=== PATIENT | male | born 1975 | race Caucasian/White ===

== ENCOUNTER → 2017-09-03 | Outpatient (CLI) | payer OTHER ==
[~2017-09-03] MED LIST: CYCL10; CYCL10 PO; ESCI20; ESCI20 PO; OXYACE10; OXYACE10 PO; OXYC5 PO; PRED20 PO; PRED5
[2017-09-03 15:07] LABS: U Amphetamine Screen DETECTED; U Barbituate Screen Not Detected; U Benzodiazapine Screen Not Detected; U Buprenorphine Screen DETECTED; U Cannabinoids Screen Not Detected; U Cocaine Screen Not Detected; U Methadone Screen Not Detected; U Methamphetamine Screen Not Detected; U Opiates Screen Not Detected; U Oxycodone Screen Not Detected; U Phencyclidine Screen Not Detected; U Propoxyphene Screen Not Detected
== END ==
LOC: LAB 14:43 → LAB SHORT 14:43
PROVIDERS: Nurse Practitioner Family
DX: Z51.81 Encounter for therapeutic drug level monitoring (principal); Z79.899 Other long term (current) drug therapy

== ENCOUNTER 2018-01-21 13:41 | Day surgery (SDC) | payer OTHER ==
[~2018-01-21] VITALS: Ht 177.8 cm; Wt 86.4 kg
[2018-01-21] MEDS ORDERED: OLANZAPINE ODT10 MG (14:06)
[2018-01-21] MEDS ORDERED: Lamictal200 MG (14:06)
[2018-01-21] MEDS ORDERED: SUBOXONE 8 MG-1 EACH (14:07)
[2018-01-21] MEDS ORDERED: AMPDEX10CR (14:08)
== END 2018-01-21 15:19 | disposition home or self-care (01) ==
LOC: ORSCSDS 13:41
PROVIDERS: Internal Medicine Gastroenterology
PROC: 0DBP8ZX Excision of Rectum, Via Natural or Artificial Opening Endoscopic, Diagnostic (ICD-10-PCS; principal; 2018-01-21 15:00)
PROC: 0DBE8ZX Excision of Large Intestine, Via Natural or Artificial Opening Endoscopic, Diagnostic (ICD-10-PCS; principal; 2018-01-21 15:00)
DX: R19.7 Diarrhea, unspecified (principal); K64.8 Other hemorrhoids; J44.9 Chronic obstructive pulmonary disease, unspecified; F31.9 Bipolar disorder, unspecified; F41.8 Other specified anxiety disorders; F17.210 Nicotine dependence, cigarettes, uncomplicated; Z79.899 Other long term (current) drug therapy
CPT/HCPCS: 88305; J2250; J7120

== ENCOUNTER → 2018-06-05 | Outpatient (CLI) | payer OTHER ==
[~2018-06-05] MED LIST changes: +AMPDEX10CR; +Lamictal200 MG; +OLANZAPINE ODT10 MG; +SUBOXONE 8 MG-1 EACH
[2018-06-05 09:15] LABS: BASOPHILS ABSOLUTE AUTO 0.09 K/mm3 (0.00-0.23); BASOPHILS PERCENT AUTO 1 % (0-2); EOSINOPHILS ABSOLUTE AUTO 0.55 K/mm3 (0.00-0.68); EOSINOPHILS PERCENT AUTO 5 % (0-6); Hematocrit 50.6 % (37.0-53.0); Hemoglobin 17.5 g/dL (13.5-17.5); IMMATURE GRAN ABSOLUTE AUTO 0.03 K/mm3 (0.00-0.10); IMMATURE GRAN PERCENT AUTO 0 % (0-1); LYMPHOCYTES ABSOLUTE AUTO 2.87 K/mm3 (0.84-5.20); LYMPHOCYTES PERCENT AUTO 28 % (21-46); MONOCYTES ABSOLUTE AUTO 0.78 K/mm3 (0.16-1.47); MONOCYTES PERCENT AUTO 8 % (4-13); Mean Corpuscular HGB 29.9 pg (26.0-34.0); Mean Corpuscular HGB Conc 34.6 g/dL (31.5-36.5); Mean Corpuscular Volume 87 fL (80-100); Mean Platelet Volume 8.5 fL (9.1-12.4); NEUTROPHILS ABSOLUTE AUTO 6.06 K/mm3 (1.96-9.15); NEUTROPHILS PERCENT AUTO 58 % (41-73); Platelet Count 288 K/mm3 (150-400); RDW Coefficient Variation 14.1 % (11.7-14.2); RDW Standard Deviation 44.3 fL (35.1-46.3); Red Blood Cell Count 5.85 M/mm3 (4.30-5.90); White Blood Cell Count 10.38 K/mm3 (4.00-11.30)
[2018-06-05 09:32] LABS: Alanine Aminotransfer (ALT/SGP 36 U/L (12-78); Albumin, Blood 3.9 g/dL (3.4-5.0); Alk Phos 111 U/L (40-126); Anion Gap 9 mmol/L (6-16); Aspartate Aminotrans (AST/SGOT 31 U/L (12-37); Bilirubin, Total 0.4 mg/dL (0.1-1.0); Blood Urea Nitrogen 15 mg/dL (8-24); Bun/Creatinine Ratio 14.4 (12.0-20.0); CO2, Blood 27 mmol/L (21-32); CPK Creatine Kinase 215 U/L (39-308); Calcium, Blood 9.1 mg/dL (8.5-10.1); Chloride, Blood 100 mmol/L (98-108); Creatinine, Blood 1.04 mg/dL (0.60-1.20); Free Thyroxine 0.79 ng/dL (0.70-1.60); Globulin, Blood 3.8 g/dL (2.2-4.0); Glomerular Filtration Rate >60 (60-); Glucose, Blood 85 mg/dL (70-99); Potassium, Blood 3.8 mmol/L (3.5-5.5); Sodium, Blood 136 mmol/L (136-145); Thyroid Stimulating Hormone 4.152 uIU/mL (0.360-4.800); Total Protein, Blood 7.7 g/dL (6.4-8.2)
[2018-06-05 09:36] LABS: Troponin I <0.015 ng/mL (0.000-0.040)
== END | disposition home or self-care (01) ==
LOC: LAB EV 09:08 → LAB SHORT 09:08
PROVIDERS: General Practice
DX: R07.9 Chest pain, unspecified (principal); R53.81 Other malaise
CPT/HCPCS: 80053; 82550; 83880; 84439; 84443; 84484; 85025; 85379

== ENCOUNTER → 2019-01-20 | Outpatient (CLI) | payer OTHER ==
[2019-01-20 13:54] LABS: U Amphetamine Screen Not Detected; U Barbituate Screen Not Detected; U Benzodiazapine Screen Not Detected; U Buprenorphine Screen DETECTED; U Cannabinoids Screen Not Detected; U Cocaine Screen Not Detected; U Methadone Screen Not Detected; U Methamphetamine Screen Not Detected; U Opiates Screen Not Detected; U Oxycodone Screen Not Detected; U Phencyclidine Screen Not Detected; U Propoxyphene Screen Not Detected
== END | disposition home or self-care (01) ==
LOC: LAB 11:20 → LAB SHORT 11:20
PROVIDERS: Registered Nurse Psychiatric/Mental Health
DX: Z51.81 Encounter for therapeutic drug level monitoring (principal); Z79.899 Other long term (current) drug therapy
CPT/HCPCS: G0480

== ENCOUNTER → 2019-05-06 | Outpatient (CLI) | payer OTHER | END | disposition home or self-care (01) | LOC: PLD 07:41 → LAB SHORT 07:41 | DX: L60.2 Onychogryphosis (principal) | CPT/HCPCS: 88305; 88312 ==

== ENCOUNTER → 2019-05-11 | Outpatient (CLI) | payer OTHER ==
[2019-05-11 16:12] LABS: U Amphetamine Screen DETECTED; U Barbituate Screen Not Detected; U Benzodiazapine Screen Not Detected; U Buprenorphine Screen DETECTED; U Cannabinoids Screen Not Detected; U Cocaine Screen Not Detected; U Methadone Screen Not Detected; U Methamphetamine Screen Not Detected; U Opiates Screen Not Detected; U Oxycodone Screen Not Detected; U Phencyclidine Screen DETECTED; U Propoxyphene Screen Not Detected
== END | disposition home or self-care (01) ==
LOC: LAB SHORT 15:42 → LAB 15:42
PROVIDERS: Registered Nurse Psychiatric/Mental Health
DX: Z51.81 Encounter for therapeutic drug level monitoring (principal); Z79.899 Other long term (current) drug therapy

== ENCOUNTER 2019-10-18 07:54 | Day surgery (SDC) | payer OTHER ==
[~2019-10-18] VITALS: Ht 180.3 cm; Wt 100.1 kg
[~2019-10-18 07:54] MED LIST changes: +DESV50 PO; +Flonase 0.05% N16 GM; +LAMICTAL XR300 MG PO; +Neurontin 300300 MG PO; +TIZA4 PO; +Zyprexa20 MG PO
--- NOTE | 2019-10-18 08:36 | NUR ---
10/18/19 0836 Nadiya Hernandez 1ST IV MISSED, 2ND INFILTRATED. G
== END 2019-10-18 10:00 | disposition home or self-care (01) ==
LOC: ORSCSDS 07:54
PROVIDERS: Internal Medicine Gastroenterology
PROC: 0D758ZZ Dilation of Esophagus, Via Natural or Artificial Opening Endoscopic (ICD-10-PCS; principal; 2019-10-18 09:00)
PROC: 0DB58ZX Excision of Esophagus, Via Natural or Artificial Opening Endoscopic, Diagnostic (ICD-10-PCS; principal; 2019-10-18 09:00)
DX: R13.10 Dysphagia, unspecified (principal); J45.909 Unspecified asthma, uncomplicated; F17.210 Nicotine dependence, cigarettes, uncomplicated; Z79.899 Other long term (current) drug therapy
CPT/HCPCS: 88305; J0330; J0461; J2405; J2704; J7120

== ENCOUNTER → 2019-11-22 | Outpatient (CLI) | payer OTHER ==
[2019-11-22 13:25] LABS: BASOPHILS ABSOLUTE AUTO 0.09 K/mm3 (0.00-0.23); BASOPHILS PERCENT AUTO 1 % (0-2); EOSINOPHILS ABSOLUTE AUTO 0.67 K/mm3 (0.00-0.68); EOSINOPHILS PERCENT AUTO 9 % (0-6); Hematocrit 49.6 % (37.0-53.0); Hemoglobin 16.3 g/dL (13.5-17.5); IMMATURE GRAN ABSOLUTE AUTO 0.01 K/mm3 (0.00-0.10); IMMATURE GRAN PERCENT AUTO 0 % (0-1); LYMPHOCYTES ABSOLUTE AUTO 2.58 K/mm3 (0.84-5.20); LYMPHOCYTES PERCENT AUTO 35 % (21-46); MONOCYTES PERCENT AUTO 7 % (4-13); Mean Corpuscular HGB Conc 32.9 g/dL (31.5-36.5); Mean Corpuscular Volume 85 fL (80-100); Mean Platelet Volume 9.6 fL (9.1-12.4); NEUTROPHILS PERCENT AUTO 48 % (41-73); Platelet Count 340 K/mm3 (150-400); RDW Coefficient Variation 16.1 % (11.7-14.2); RDW Standard Deviation 49.4 fL (35.1-46.3); Red Blood Cell Count 5.82 M/mm3 (4.30-5.90); White Blood Cell Count 7.45 K/mm3 (4.00-11.30)
== END ==
LOC: LAB SHORT 13:21 → LAB EV 13:21
PROVIDERS: Emergency Medicine
DX: D72.829 Elevated white blood cell count, unspecified (principal)
CPT/HCPCS: 85025

== ENCOUNTER 2021-02-26 12:56 | Day surgery (SDC) | payer OTHER ==
[~2021-02-26] VITALS: Ht 180.3 cm; Wt 97.4 kg
--- NOTE | 2021-02-26 14:19 | NUR ---
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 PT STATES UNDERSTANDING.
== END 2021-02-26 14:12 | disposition home or self-care (01) ==
LOC: ORSCSDS 12:56
PROVIDERS: Internal Medicine Gastroenterology
PROC: 0D758ZZ Dilation of Esophagus, Via Natural or Artificial Opening Endoscopic (ICD-10-PCS; principal; 2021-02-26 14:30)
PROC: 0DB68ZX Excision of Stomach, Via Natural or Artificial Opening Endoscopic, Diagnostic (ICD-10-PCS; principal; 2021-02-26 14:30)
PROC: 0DB58ZX Excision of Esophagus, Via Natural or Artificial Opening Endoscopic, Diagnostic (ICD-10-PCS; principal; 2021-02-26 14:30)
DX: R13.10 Dysphagia, unspecified (principal); J45.909 Unspecified asthma, uncomplicated; Z87.19 Personal history of other diseases of the digestive system; K29.80 Duodenitis without bleeding; K29.70 Gastritis, unspecified, without bleeding; F17.210 Nicotine dependence, cigarettes, uncomplicated; Z79.899 Other long term (current) drug therapy
CPT/HCPCS: 88305; 88342; J0461; J2250; J2405; J2704; J7120

== ENCOUNTER 2022-04-20 22:24 | Emergency (ER) | payer OTHER ==
[~2022-04-20] VITALS: Ht 177.8 cm; Wt 95.2 kg
[~2022-04-20 22:24] MED LIST changes: +Amphetamine Sal20 MG PO; +BUPRENORPHINE HC8 MG PO; +Cetirizine HCl10 MG PO; +GLIP2.5ER PO; +IBU800 M1 PO; +METFORMIN HCL500 M3 PO; +NEURONTIN300 MG PO
== END 2022-04-20 22:56 | disposition home or self-care (01) ==
LOC: ER 22:24
DX: M62.838 Other muscle spasm (principal); R73.03 Prediabetes; F17.200 Nicotine dependence, unspecified, uncomplicated; Z88.2 Allergy status to sulfonamides; Z88.6 Allergy status to analgesic agent; Z79.899 Other long term (current) drug therapy
CPT/HCPCS: 99282

== ENCOUNTER → 2022-08-08 | Outpatient (CLI) | payer OTHER | END | disposition home or self-care (01) | LOC: LAB SHORT 09:45 → PLD 09:45 | DX: B35.1 Tinea unguium (principal); L60.2 Onychogryphosis | CPT/HCPCS: 88305; 88312 ==

== ENCOUNTER 2022-09-04 10:15 | Day surgery (SDC) | payer OTHER ==
[~2022-09-04] VITALS: Ht 177.8 cm; Wt 104.3 kg
--- NOTE | 2022-09-04 12:06 | NUR ---
09/04/22 1206 Laxmi Jimenez LIDOCAINE 2% 1:100,000 DILUTED WITH NORMAL SALINE 1:1 TO MAKE LIDOCAINE 1% 1:200,000 FOR INJECTION AT OPSITE BY DR DUMONT
--- NOTE | 2022-09-04 13:41 | NUR ---
09/04/22 1341 SUNITHA TIWARI PT CAME OUT OF OR COVERED IN BLOOD. PT WOKE UP COMBATIVE AND PULLED HIS IV PRIOR TO COMING INTO PACU. PT ALERT WHEN COME OUT OF OR. PAINFUL IN FACE, BUT DOES NOT WANT TO HAVE A NEW IV STARTED. PER DR. BRYANT, GIVE PO PAIN MEDS. NURSING STAFF ASSISTING WITH CLEANING PT. ALL STAFF IN PACU IS WEARING ISOLATION GOWNS, MASKS, AND PROTECTIVE EYE WEAR. CURRENTLY PT IS EATING ICE CHIPS AND SEEMS TO BE DOING WELL THOUGH HE IS BREATHING FAST, POSSIBLE ANXIETY. PT IS HOWEVER ON 15L O2 BY BLOWBY.
--- NOTE | 2022-09-04 13:49 | NUR ---
09/04/22 3449 SUNITHA TIWARI, STUDENT NURSE ASSISTING WITH PT CARE. PT ON 10L BY SANDHYA. STILL BREATHING HARD. HAS PTSD AND ANXIETY. REQUESTED THERAPY DOG TO COME MAKE A VISIT SINCE PT THERAPY DOG IS AT HOME. PT ABLE TO DRINK WITHOUT DIFFICULTY.
--- NOTE | 2022-09-04 15:47 | NUR ---
09/04/22 1547 Laxmi Jimenez LIDOCAINE 2% 1:100,000 DILUTED W/ NORMAL SALINE 1:1 TO MAKE LIDOCAINE 1% 1:200,000 FOR INJECTION AT OPSITE BY DR DUMONT.
[2022-09-04 17:28] VITALS: BP 163/88
--- NOTE | 2022-09-04 18:22 | NUR ---
09/04/221821 Sara Dickerson MD CONTACTED MD DUMONT REGARDING ADMIT 2300 OBSERVATION. MD DUMONT SEEING PT'S IN CLINIC AND HE ASKED MD BRYANT TO CONTACT THE HOSPITALIST TO ADMIT PT FOR 2300 OBSERVATION. ROOM AQUIRED AND HOSPITALIST CAME TO [facility] TO SEE PATIENT. PT SAID "I WANT TO GO HOME, I DON'T WANT TO STAY." PT WANTS TO LEAVE AMA BUT DOES NOT HAVE A RIDE, CONTACTING A FRIEND TO SEE IF HE CAN COME PICK HIM UP. MD BRYANT IS HAVING HIM SIGN A AGAINST MEDICAL ADVISE FORM TO BE ABLE TO LEAVE. PT INFORMED OF ALL RISKS INVOLVED WITH LEAVING IF SOMETHING HAPPENS AND HE CONT TO WANT TO LEAVE, FORM SIGNED.
== END 2022-09-04 18:53 | disposition home or self-care (01) ==
LOC: ORSCSDS 10:15
PROVIDERS: Otolaryngology
PROC: 093K7ZZ Control Bleeding in Nasal Mucosa and Soft Tissue, Via Natural or Artificial Opening (ICD-10-PCS; principal; 2022-09-04 12:00)
PROC: 099R8ZZ Drainage of Left Maxillary Sinus, Via Natural or Artificial Opening Endoscopic (ICD-10-PCS; principal; 2022-09-04 12:00)
PROC: 09BS8ZZ Excision of Right Frontal Sinus, Via Natural or Artificial Opening Endoscopic (ICD-10-PCS; principal; 2022-09-04 12:00)
PROC: 8E09XBZ Computer Assisted Procedure of Head and Neck Region (ICD-10-PCS; principal; 2022-09-04 12:00)
PROC: 099Q8ZZ Drainage of Right Maxillary Sinus, Via Natural or Artificial Opening Endoscopic (ICD-10-PCS; principal; 2022-09-04 12:00)
PROC: 09BT8ZZ Excision of Left Frontal Sinus, Via Natural or Artificial Opening Endoscopic (ICD-10-PCS; principal; 2022-09-04 12:00)
DX: J32.8 Other chronic sinusitis (principal); J44.9 Chronic obstructive pulmonary disease, unspecified; G47.33 Obstructive sleep apnea (adult) (pediatric); E11.9 Type 2 diabetes mellitus without complications; R56.9 Unspecified convulsions; M79.7 Fibromyalgia; F41.9 Anxiety disorder, unspecified; F32.A Depression, unspecified; F90.9 Attention-deficit hyperactivity disorder, unspecified type; F43.10 Post-traumatic stress disorder, unspecified; Z79.899 Other long term (current) drug therapy; Z87.891 Personal history of nicotine dependence
CPT/HCPCS: 88305; 88311; A9270; C2625; J0171; J0330; J1100; J2250; J2370; J2405; J2704; J3010; J7120

== ENCOUNTER 2023-01-01 08:45 | Emergency (ER) | payer OTHER ==
[~2023-01-01] VITALS: Ht 177.8 cm; Wt 102.1 kg
[2023-01-01] MEDS ORDERED: TORSE20 PO (09:51)
[2023-01-01 10:02] VITALS: BP 141/79
== END 2023-01-01 10:00 | disposition home or self-care (01) ==
LOC: ER 08:45
DX: R60.0 Localized edema (principal); Z88.2 Allergy status to sulfonamides; Z88.8 Allergy status to other drugs, medicaments and biological substances
CPT/HCPCS: 99283

== ENCOUNTER 2023-01-22 10:19 | Day surgery (SDC) | payer OTHER ==
[~2023-01-22] VITALS: Ht 177.8 cm; Wt 103.3 kg
[~2023-01-22 10:19] MED LIST changes: +TORSE20 PO
[2023-01-22] MEDS ORDERED: ALBU90OI (11:02)
[2023-01-22] MEDS ORDERED: DESV50 (11:02)
[2023-01-22] MEDS ORDERED: Flonase 0.05% N16 GM (11:03)
[2023-01-22] MEDS ORDERED: Robaxin750 MG (11:04)
[2023-01-22] MEDS ORDERED: POTA8 (11:05)
[2023-01-22 12:37] VITALS: BP 139/82
--- NOTE | 2023-01-22 13:13 | NUR ---
01/22/23 1313 Real Fritz IV REMOVED INTACT. SITE WNL.
== END 2023-01-22 13:07 | disposition home or self-care (01) ==
LOC: ORSCSDS 10:19
PROVIDERS: Orthopaedic Surgery
PROC: 01N54ZZ Release Median Nerve, Percutaneous Endoscopic Approach (ICD-10-PCS; principal; 2023-01-22 11:30)
DX: G56.01 Carpal tunnel syndrome, right upper limb (principal); F31.9 Bipolar disorder, unspecified; F41.9 Anxiety disorder, unspecified; J44.9 Chronic obstructive pulmonary disease, unspecified
CPT/HCPCS: 82947; J7120

== ENCOUNTER 2023-01-25 05:45 | Emergency (ER) | payer OTHER ==
[~2023-01-25] VITALS: Ht 177.8 cm; Wt 103.0 kg
[~2023-01-25 05:45] MED LIST changes: +ALBU90OI; +DESV50; +POTA8; +Robaxin750 MG
[2023-01-25 07:45] LABS: BASOPHILS ABSOLUTE AUTO 0.07 K/mm3 (0.00-0.23); BASOPHILS PERCENT AUTO 1 % (0-2); EOSINOPHILS ABSOLUTE AUTO 0.45 K/mm3 (0.00-0.68); EOSINOPHILS PERCENT AUTO 8 % (0-6); Hematocrit 46.6 % (37.0-53.0); Hemoglobin 16.3 g/dL (13.5-17.5); IMMATURE GRAN ABSOLUTE AUTO 0.01 K/mm3 (0.00-0.10); IMMATURE GRAN PERCENT AUTO 0 % (0-1); LYMPHOCYTES ABSOLUTE AUTO 1.76 K/mm3 (0.84-5.20); LYMPHOCYTES PERCENT AUTO 29 % (21-46); MONOCYTES ABSOLUTE AUTO 0.55 K/mm3 (0.16-1.47); MONOCYTES PERCENT AUTO 9 % (4-13); Mean Corpuscular HGB 30.7 pg (26.0-34.0); Mean Corpuscular Volume 88 fL (80-100); Mean Platelet Volume 9.6 fL (9.1-12.4); NEUTROPHILS ABSOLUTE AUTO 3.17 K/mm3 (1.96-9.15); NEUTROPHILS PERCENT AUTO 53 % (41-73); Platelet Count 215 K/mm3 (150-400); RDW Coefficient Variation 13.5 % (11.7-14.2); RDW Standard Deviation 43.6 fL (35.1-46.3); Red Blood Cell Count 5.31 M/mm3 (4.30-5.90); White Blood Cell Count 6.01 K/mm3 (4.00-11.30)
[2023-01-25 07:59] LABS: Bun/Creatinine Ratio 12.8 (12.0-20.0); Calcium, Blood 9.2 mg/dL (8.5-10.1); Creatinine, Blood 0.78 mg/dL (0.60-1.20); Potassium, Blood 2.4 mmol/L (3.5-5.5)
[2023-01-25 08:53] LABS: Magnesium, Blood 1.9 mg/dL (1.6-2.4); Phosphorus, Blood 3.2 mg/dL (2.5-4.9); Thyroid Stimulating Hormone 2.05 uIU/mL (0.360-4.800)
[2023-01-25] MEDS ORDERED: K-Dur20 MEQ PO (13:06)
[2023-01-25 13:17] VITALS: BP 119/58
== END 2023-01-25 13:18 | disposition home or self-care (01) ==
LOC: ER 05:45
PROVIDERS: Emergency Medicine
DX: E87.6 Hypokalemia (principal); F17.200 Nicotine dependence, unspecified, uncomplicated; Z88.2 Allergy status to sulfonamides; Z88.8 Allergy status to other drugs, medicaments and biological substances; Z88.4 Allergy status to anesthetic agent
CPT/HCPCS: 80048; 82550; 83735; 84100; 84443; 85025; 93005; 93010; 96365; 96366; 99285-25; A9270; J3480; J7030; J7050

== ENCOUNTER 2023-03-18 06:02 | Day surgery (SDC) | payer OTHER ==
[~2023-03-18] VITALS: Ht 177.8 cm; Wt 105.0 kg
[~2023-03-18 06:02] MED LIST changes: +K-Dur20 MEQ PO
--- NOTE | 2023-03-18 06:35 | NUR ---
03/18/23 0635 Nadiya Hernandez PT IN A MOTORIZED SCOOTER WITH HIS SERVICE DOG LYUDMILA
[2023-03-18] MEDS ORDERED: PREG150 PO (06:39)
[2023-03-18] MEDS ORDERED: DEPO-TESTO200 MG/18 IM (06:41)
[2023-03-18 08:13] VITALS: BP 119/67
--- NOTE | 2023-03-18 08:54 | NUR ---
03/18/23 0854 Real Fritz IV REMOVED INTACT. SITE WNL.
== END 2023-03-18 08:51 | disposition home or self-care (01) ==
LOC: ORSCSDS 06:02
PROVIDERS: Orthopaedic Surgery
PROC: 01N54ZZ Release Median Nerve, Percutaneous Endoscopic Approach (ICD-10-PCS; principal; 2023-03-18 07:30)
DX: G56.02 Carpal tunnel syndrome, left upper limb (principal); F31.9 Bipolar disorder, unspecified; Z79.899 Other long term (current) drug therapy; I87.2 Venous insufficiency (chronic) (peripheral); I83.813 Varicose veins of bilateral lower extremities with pain; Z87.891 Personal history of nicotine dependence; J44.9 Chronic obstructive pulmonary disease, unspecified
CPT/HCPCS: 82947; J2250; J7120

== ENCOUNTER → 2024-07-06 | Outpatient (CLI) | payer OTHER ==
[~2024-07-06] MED LIST changes: +DEPO-TESTO200 MG/18 IM; +PREG150 PO
== END ==
LOC: LAB 12:15 → PLD 12:15 → LAB SHORT 12:15
DX: L72.0 Epidermal cyst (principal); D49.2 Neoplasm of unspecified behavior of bone, soft tissue, and skin
CPT/HCPCS: 88304

== ENCOUNTER → 2025-03-23 | Outpatient (CLI) | payer OTHER ==
[~2025-03-23] MED LIST changes: +FURO40 PO; +QUET25
[2025-03-24 19:41] LABS: Creatinine, Urine Random 204.0 mg/dL (27.00-270.00); Microalb/Creat Ratio UR, Rand 11.618 mg/g (0.000-30.000); Microalbumin, Random Urine 23.7 mg/L (0.000-20.000)
== END ==
LOC: LAB SHORT 11:00 → LAB 11:00 → LAB SHORT 03-24 11:05
PROVIDERS: Physician Assistant
DX: E11.9 Type 2 diabetes mellitus without complications (principal)
CPT/HCPCS: 82043; 82570